=== PATIENT | female | born 1980 | race Caucasian/White ===

== ENCOUNTER 2018-03-27 21:59 | Observation (INO) | payer MEDICAID ==
[2018-03-27 23:59] LABS: URINE PH (Dip) POC 8.5 (5.0-8.5)
[2018-03-27 23:59] LABS: URINE BLOOD (Dip) POC Negative (NEGATIVE); URINE GLUCOSE (Dip) POC Negative (NEGATIVE); URINE KETONES (Dip) POC 2+ (NEGATIVE); URINE LEUKOCYTE EST (Dip) POC Negative (NEGATIVE); URINE NITRITE (Dip) POC Negative (NEGATIVE); URINE TOTAL PROTEIN POC Negative (NEGATIVE)
[2018-03-28 00:26] LABS: ADD MAN DIFF? NO
[2018-03-28 00:28] LABS: WHITE BLOOD COUNT 11.1 10^3/ul (4.8-10.8)
[2018-03-28 00:28] LABS: BASOPHIL # 0.1 10^3/ul (0.0-0.1); BASOPHILS % 0.5 % (0.0-2.0); EOSINOPHILS # 0.1 10^3/ul (0.0-0.5); EOSINOPHILS % 0.6 % (0.0-7.0); HEMATOCRIT 38.7 % (37.0-47.0); HEMOGLOBIN 13.5 g/dl (12.0-16.0); LYMPHOCYTES # 3.2 10^3/ul (0.8-2.9); LYMPHOCYTES % 28.9 % (15.0-51.0); MEAN CORPUSCULAR HEMOGLOBIN 30.3 pg (29.0-33.0); MEAN CORPUSCULAR HGB CONC 34.9 g/dl (32.0-37.0); MEAN PLATELET VOLUME 10.3 fl (7.4-10.4); MONOCYTE # 0.7 10^3/ul (0.3-0.9); MONOCYTES % 5.9 % (0.0-11.0); NEUTROPHIL # 7.1 10^3/ul (1.6-7.5); NEUTROPHILS % 63.8 % (39.0-77.0); PLATELET COUNT 282 10^3/UL (140-415); RED BLOOD COUNT 4.45 10^6/ul (4.20-5.40); RED CELL DISTRIBUTION WIDTH 11.9 % (11.5-14.5)
[2018-03-28 00:45] LABS: ANION GAP 14 (8-16); BLOOD UREA NITROGEN 10 mg/dl (7-20); CALCIUM 9.8 mg/dl (8.4-10.2); CARBON DIOXIDE 26 mmol/L (21-31); CHLORIDE 103 mmol/L (97-110); CREATININE 0.56 mg/dl (0.44-1.00); GLUCOSE 129 mg/dl (70-220); SODIUM 140 mmol/L (135-144)
[2018-03-28 00:49] LABS: POTASSIUM 2.6 mmol/L (3.5-5.1)
[2018-03-28 00:53] LABS: PROTIME 12.2 Sec (11.9-14.9)
[2018-03-28 00:54] LABS: PARTIAL THROMBOPLASTIN TIME 31.7 Sec (23.0-35.0)
[2018-03-28 00:56] LABS: TROPONIN-I < 0.012 ng/ml (0.000-0.120)
[2018-03-28] MEDS: POTASSIUM CHLORIDE (SR) 20 MEQ TAB PO ×2 (02:30→09:42)
[2018-03-28] MEDS: POTASSIUM CHLORIDE 100 ML IVPB ×2 (02:31→04:43)
[2018-03-28] MEDS ORDERED: ONDANSETRON 4 MG INJ IV (06:00)
[2018-03-28] MEDS ORDERED: ALBUTEROL/IPRATROPIUM (NEB) 3 ML AMP HHN (06:00)
[2018-03-28] MEDS ORDERED: NACL 0.9% 3 ML SYG IV (06:00)
[2018-03-28] MEDS: NITROGLYCERIN (SL) 0.4 MG TAB SL ×2 (06:13→06:24)
[2018-03-28] MEDS ORDERED: METOPROLOL 25 MG TAB PO (07:30)
[2018-03-28] MEDS ORDERED: hydrALAzine 20 MG INJ (07:31)
[2018-03-28] MEDS: hydrALAzine 20 MG INJ IV ×3 (07:36→14:20)
[2018-03-28 08:38] LABS: CREATINE KINASE 89 IU/L (23-200); INR 0.88; PT RATIO 0.9
[2018-03-28 08:45] LABS: ANION GAP 16 (8-16); BLOOD UREA NITROGEN 7 mg/dl (7-20); CALCIUM 9.7 mg/dl (8.4-10.2); CARBON DIOXIDE 20 mmol/L (21-31); CHLORIDE 110 mmol/L (97-110); CREATININE 0.45 mg/dl (0.44-1.00); GLUCOSE 155 mg/dl (70-220); POTASSIUM 3.1 mmol/L (3.5-5.1); SODIUM 143 mmol/L (135-144)
[2018-03-28 08:47] LABS: PARTIAL THROMBOPLASTIN TIME 30.5 Sec (23.0-35.0)
[2018-03-28 08:51] LABS: CK INDEX 0.3; CK-MB 0.29 ng/ml (0.0-2.4); TROPONIN-I < 0.012 ng/ml (0.000-0.120)
[2018-03-28] MEDS: ASPIRIN 81 MG TAB PO (09:00)
[2018-03-28] MEDS: ENOXAPARIN 40 MG/0.4 ML SYG SC (09:33)
[2018-03-28] MEDS: ACETAMINOPHEN 325 MG TAB PO (12:39)
[2018-03-28 13:17] LABS: CREATINE KINASE 74 IU/L (23-200)
[2018-03-28 13:29] LABS: CK INDEX 0.3; CK-MB 0.25 ng/ml (0.0-2.4); TROPONIN-I < 0.012 ng/ml (0.000-0.120)
[2018-03-29] MEDS ORDERED: ASPIRIN 81 MG TAB PO (09:00)
== END 2018-03-28 15:00 | disposition home or self-care (01) ==
LOC: E/R 21:59 → TEL 03-28 02:37 → ICU 03-28 07:54
PROVIDERS: Internal Medicine
DX: R07.9 Chest pain, unspecified (principal); E87.6 Hypokalemia; I12.9 Hypertensive chronic kidney disease with stage 1 through stage 4 chronic kidney disease, or unspecified chronic kidney disease; N18.9 Chronic kidney disease, unspecified; R47.81 Slurred speech
CPT/HCPCS: 36415; 70450; 70551; 71045; 80048; 81003; 81025; 82550; 82553; 82962; 83735; 84484; 85025; 85335; 85610; 85730; 93005; 93306; 99217; 99285-25; G0378